=== PATIENT | female | born 1960 | race Two or more races ===

== ENCOUNTER 2025-06-22 23:53 | Emergency (ER) | payer MEDICARE, MEDICAID ==
[~2025-06-22] VITALS: Ht 162.6 cm; Wt 97.2 kg
[~2025-06-22 23:53] MED LIST: ALBU10.7 PO; DILT120T20 PO; FAMO40TA58 PO; LOSA25TA41 PO
--- NOTE | 2025-06-22 23:59 | ELECTROCARDIOGRAPH REPORT ---
[facility] Test Date: 2025-06-22 Test Time: 23:57:17 Pat Name: LISSETTE VOGT Department: EMERGENCY ROOM Room: Gender: F Protocol Officer: MERRICK : 1960 Requested By: KARLA HONEYCUTT Order Number: [id number] Reading MD: Measurements Intervals [place] Rate: 69 P: 61 VA: 153 QRS: 69 QRSD: 97 T: 23 QT: 484 QTc: 519 Interpretive Statements Sinus rhythm RSR' in V1 or V2, right VCD or RVH Prolonged QT interval Please click the below link to view image of tracing.
[2025-06-23 00:08] LABS: MEAN PLATELET VOLUME 7.3 FL (7.4-10.4); RED CELL DISTRIBUTION WIDTH 15.3 % (11.5-14.5)
--- NOTE | 2025-06-23 00:26 | RADIOLOGY REPORT ---
CHEST RADIOGRAPH Indication: CP Technique: Single frontal view of the chest was obtained COMPARISON: DI CHEST,SINGLE VIEW on DOS: 06/02/25, DI CHEST,SINGLE VIEW on DOS: 02/12/25, DI CHEST,TWO VIEWS on DOS: 01/09/25, CHEST,SINGLE VIEW on DOS: 09/19/20 FINDINGS: Lines and Tubes: None Lungs: Clear Pleura: No effusion. No pneumothorax. Cardiomediastinal contours: Unremarkable Bones: Unremarkable IMPRESSION: 1. No acute disease.
[2025-06-23 00:29] LABS: CREATININE 0.88 MG/DL (0.40-0.90); PRO BRAIN NATRIURETIC PEPTIDE 64 PG/ML (0-125); TOTAL CARBON DIOXIDE 24.3 MMOL/L (24-32); eCRCL 54 ML/MIN; eGFR 64 ML/MIN
[2025-06-23] MEDS ORDERED: PRED20TA PO (01:42)
--- NOTE | 2025-06-23 01:43 | Physician Documentation ---
History of Present Illness ~ Chief Complaint: Shortness of Breath Stated Complaint: SOB A ALS Time Seen by MD: 00:06 Mode of Arrival: EMS HPI 65 year old female BIB EMS with asthma exacerbation, provided with breathing treatment en route, improved symptoms on arrival. Medication Reconciliation Allergies: Coded Allergies: aspirin (Verified Allergy, Unknown, 06/02/25) Scheduled Diltiazem HCl (Diltiazem 24Hr ER (LA)), 1 TAB PO DAILY, (Reported) Famotidine (Famotidine), 1 TAB PO DAILY, (Reported) Losartan Potassium (Losartan Potassium), 1 TAB PO DAILY, (Reported) Scheduled PRN Albuterol Sulfate/Budesonide (Airsupra 90-80 Mcg Inhaler), 2 PUFFS PO Q4H PRN for SOB or wheezing, (Reported) Past Medical History Patient History: Diabetes mellitus in mother FH: seizures Brother Sister Hypertension in father Alcohol Use: Sober Drug Use: methamphetamine Lives with: Other Lives In: Assisted Care Review of Systems All Other Systems at this time: Reviewed and Negative Physical Exam Vital Signs: RN Vital Signs have been reviewed: Yes, Heart Rate: 70, Respiratory Rate: 16, BP: 136/106, Pulse Oximetry: 99, Weight: 97.200 Oxygen Flow Rate: 0 Physical Exam HEENT: PERRL, moist oral mucosa, EOMI Pulmonary: No respiratory distress Cardiac: tachycardic, no murmur, rub or gallop GI: nondistended, soft, nontender, no guarding, no rebound MSK: no deformity Skin: w/d/i, no rash Neuro: alert, nonfocal Psych: normal affect Progress Results/Orders Results/Orders Orders - KARLA HONEYCUTT MD Monitor (06/22/25 23:58) Saline Lock (06/22/25 23:58) Oxygen (06/22/25 23:58) Hs Troponin I W Calculations (06/23/25 01:58) Hs Troponin I W Calculations (06/23/25 02:58) Chest,Single View (06/23/25 00:15) Completed Orders - KARLA HONEYCUTT MD Cbc/Diff (06/22/25 23:58) BMP (06/22/25 23:58) PBNP (06/22/25 23:58) Electrocardiogram (06/22/25 23:58) Hs Troponin I W Calculations (06/22/25 23:58) Chest,Single View (06/23/25 00:15) Prednisone Tablet (Prednisone Tablet) (06/23/25 00:55) Medications Received in ER Medications (Trade) Dose Ordered Sig/[place] Route PRN Reason Start Time Stop Time Status Last Admin Dose Admin (predniSONE tablet) 40 mg ONCE ONCE PO 06/23/25 00:55 06/23/25 00:56 DC 06/23/25 01:16 40 MG Vital Signs 06/22/25 06/23/25 06/23/25 06/23/25 23:55 00:00 00:24 01:12 Pulse 66 67 70 Resp 24 22 16 16 B/P (MAP) 161/94 160/73 (102) 136/106 (116) Pulse Ox 100 99 99 O2 Flow Rate 0 Laboratory Tests Test 06/23/25 00:02 White Blood Count 7.1 Red Blood Count 3.64 L Hemoglobin 12.1 Hematocrit 34.3 L Mean Corpuscular Volume 94.2 Mean Corpuscular Hemoglobin 33.3 H Mean Corpuscular Hemoglobin Concent 35.4 Red Cell Distribution Width 15.3 H Platelet Count 332 Mean Platelet Volume 7.3 L Neutrophils (%) (Auto) 59.9 Lymphocytes (%) (Auto) 30.7 Monocytes (%) (Auto) 6.1 Eosinophils (%) (Auto) 3.1 Basophils (%) (Auto) 0.2 Neutrophils # (Auto) 4.3 Lymphocytes # (Auto) 2.2 Monocytes # (Auto) 0.4 Eosinophils # (Auto) 0.2 Basophils # (Auto) 0.0 CBC Comment Sodium Level 129 L Potassium Level 3.4 L Chloride Level 97 L Carbon Dioxide Level 24.3 Anion Gap 8 Blood Urea Nitrogen 11 Creatinine 0.88 Estimated GFR/1.73 m2 64 BUN/Creatinine Ratio 12.5 Glucose Level 133 H Calcium Level 8.9 Troponin I High Sensitivity 9 Pro-B-Type Natriuretic Peptide 64 Albumin 3.8 Chemistry Comments Medical Decision Making Findings 65 year old female with apparent asthma exacerbation. Breathing treatment, steroid, improved, discharged with steroid burst Tx. return precautions. CXR interpreted by me demonstrated normal contours, no PTX, no PNA. Differential Dx:Considerations: Include: anxiety, asthma, bronchitis, COPD, panic attack, pneumonia, pneumonitis, pulmonary embolism, respiratory distress, respiratory failure Departure Disposition: HOME / SELF CARE / HOMELESS Impression: Primary Impression: Acute exacerbation of chronic obstructive airways disease Condition: Stable Discharge Instructions: Asthma, Adult, [id number] Referrals: NO PRIMARY CARE PROVIDER (PCP) Prescriptions Prednisone* (Prednisone*) 20 Mg Tablet 2 TAB PO DAILY, #10 TAB Prov: KARLA HONEYCUTT MD 06/23/25 Education Educated: Patient Educated regarding: diagnosis, treatment, prognosis, need for follow up Signature Scribe Signature: . Attestation: . KARLA HONEYCUTT MD Jun 23, 2025 01:43
[2025-06-23 02:23] VITALS: BP 154/116; PULSE 78; RESP 14; TEMP 98.1; O2SAT 99
== END 2025-06-23 02:26 | disposition home or self-care (01) ==
LOC: ER 23:54
DX: J44.1 Chronic obstructive pulmonary disease with (acute) exacerbation (principal); F15.90 Other stimulant use, unspecified, uncomplicated; F10.90 Alcohol use, unspecified, uncomplicated; Z88.6 Allergy status to analgesic agent; Y90.9 Presence of alcohol in blood, level not specified
CPT/HCPCS: 36415; 71045; 80048; 83880; 84484; 85025; 93005; 99285; J7512

== ENCOUNTER → 2025-07-16 | Emergency (ER) | payer MEDICARE, MEDICAID ==
[~2025-07-16] VITALS: Ht 165.1 cm; Wt 102.0 kg
[~2025-07-16] MED LIST changes: +BUDE10.2 INH; +PRED20TA PO
--- NOTE | 2025-07-16 07:53 | ELECTROCARDIOGRAPH REPORT ---
[facility] Test Date: 2025-07-16 Test Time: 07:48:47 Pat Name: LISSETTE VOGT Department: [facility]- Patient ID: [facility]-[id number] Room: Gender: F Hospitalist: : 1960 Requested By: JENNIFER DAVILA Order Number: [id number] Reading MD: Dr. Edilberto Rodríguez Measurements Intervals [place] Rate: 81 P: 63 AL: 153 QRS: 73 QRSD: 100 T: 8 QT: 436 QTc: 506 Interpretive Statements Sinus rhythm RSR' in V1 or V2, probably normal variant Borderline repolarization abnormality Prolonged QT interval Baseline wander in lead(s) II,III,aVF,V2,V3,V5,V6 Electronically Signed On 07-17-2025 21:40:[address] Edilberto Rodríguez Please click the below link to view image of tracing.
[2025-07-16 08:11] LABS: MEAN PLATELET VOLUME 7.4 FL (7.4-10.4); RED CELL DISTRIBUTION WIDTH 14.6 % (11.5-14.5)
[2025-07-16 08:21] LABS: APTT 28 SECONDS (22-32); INR 1.0 INR
--- NOTE | 2025-07-16 08:21 | RADIOLOGY REPORT ---
EXAM: DI CHEST,SINGLE VIEW Indication: CP Technique: Single frontal view of the chest was obtained Comparison: DI CHEST,SINGLE VIEW on DOS: 06/23/25, DI CHEST,SINGLE VIEW on DOS: 06/02/25, DI CHEST,SINGLE VIEW on DOS: 02/12/25, DI CHEST,TWO VIEWS on DOS: 01/09/25, CHEST,SINGLE VIEW on DOS: 09/19/20 FINDINGS: Lines and Tubes: None Lungs: No focal consolidation. Pleura: No effusion. No pneumothorax. Cardiomediastinal contours: Unremarkable Bones: No acute osseous abnormality. IMPRESSION: No acute cardiopulmonary disease.
[2025-07-16 08:24] LABS: CREATININE 0.81 MG/DL (0.40-0.90); TOTAL CARBON DIOXIDE 24.3 MMOL/L (24-32); eCRCL 61 ML/MIN; eGFR 71 ML/MIN
[2025-07-16 08:31] LABS: PRO BRAIN NATRIURETIC PEPTIDE < 30 PG/ML (0-125)
--- NOTE | 2025-07-16 08:53 | Physician Documentation ---
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 At the facility they noticed her blood pressure was elevated but upon arrival to the emergency room her blood pressure is normal at 145/69. The patient's the chest pain is in the anterior precordial area focused and sharp without nausea vomiting diarrhea diaphoresis. She also states she has some shortness a breath. The patient denies smoking, alcohol drinking as well as drug usage. No other complaints. The patient is ambulatory. Medication Reconciliation Allergies: Coded Allergies: aspirin (Verified Allergy, Unknown, 06/02/25) Scheduled Budesonide/Formoterol Fumarate (Symbicort 160-4.5 Mcg Inhaler), 2 PUFFS INH Q12H Diltiazem HCl (Diltiazem 24Hr ER (LA)), 1 TAB PO DAILY, (Reported) Famotidine (Famotidine), 1 TAB PO DAILY, (Reported) Losartan Potassium (Losartan Potassium), 1 TAB PO DAILY, (Reported) Prednisone* (Prednisone*), 2 TAB PO DAILY Scheduled PRN Albuterol Sulfate/Budesonide (Airsupra 90-80 Mcg Inhaler), 2 PUFFS PO Q4H PRN for SOB or wheezing, (Reported) Past Medical History Patient History: Diabetes mellitus in mother FH: seizures Brother Sister Hypertension in father Alcohol Use: Sober Drug Use: methamphetamine Lives with: Other Lives In: Assisted Care Review of Systems ROS As stated above in the HPI, otherwise all systems are reviewed and negative. Physical Exam Vital Signs: Temperature: 98.1, Source: Oral, Heart Rate: 73, Respiratory Rate: 19, BP: 130/95, Pulse Oximetry: 97, Weight: 102.000 Physical Exam Reviewed vital signs and they are well within normal range. Const: Patient is not in acute cardiopulmonary distress Head: Atraumatic Eyes: Normal Conjunctiva ENT: Normal External Ears, Nose and Mouth. Moist mucous membranes Neck: Full range of motion. No meningismus Resp: Clear to auscultation bilaterally. Normal work of breathing Cardio: Regular rate and rhythm, no murmurs. Skin well perfused, heart rate 84/minute Abd: Soft, non-tender, non-distended. Normal bowel sounds. No rebound or guarding Skin: No petechiae or rashes. Warm and dry Back: No midline or flank tenderness Ext: No cyanosis, or edema Neuro: Awake and alert Psych: Normal Mood and Affect Procedures Additional Procedures Additional Procedure Note ED MD interpretation of EKG done at 07:48 hours shows sinus rhythm at a rate of 81. Normal axis and normal intervals. Mildly elevated QTC of 506. No ischemic changes. Progress Results/Orders Results/Orders Orders - JENNIFER DAVILA MD Chest,Single View (07/16/25 07:40) Monitor (07/16/25 07:40) Saline Lock (07/16/25 07:40) Oxygen (07/16/25 07:40) Completed Orders - JENNIFER DAVILA MD Chest,Single View (07/16/25 07:40) Cbc/Diff (07/16/25 07:40) BMP (07/16/25 07:40) PBNP (07/16/25 07:40) Electrocardiogram (07/16/25 07:40) Hs Troponin I W Calculations (07/16/25 07:40) Hs Troponin I W Calculations (07/16/25 09:40) MG (07/16/25 07:42) Pt Inr (07/16/25 07:42) PTT (07/16/25 07:42) Liver Panel (07/16/25 07:42) D-Dimer (07/16/25 07:48) Vital Signs 07/16/25 07/16/25 07/16/25 07/16/25 07:41 07:56 07:57 09:05 Temp 98.1 98.1 98.1 Pulse 78 73 70 Resp 20 19 14 B/P (MAP) 145/69 130/95 (107) 128/96 (107) Pulse Ox 98 97 98 07/16/25 07/16/25 10:42 10:45 Temp 98.1 98.1 Pulse 67 67 Resp 13 13 B/P (MAP) 133/70 133/77 (95) Pulse Ox 99 99 O2 Flow Rate 0 Laboratory Tests Test 07/16/25 07:53 07/16/25 09:40 White Blood Count 6.8 Red Blood Count 3.86 L Hemoglobin 12.6 Hematocrit 36.9 Mean Corpuscular Volume 95.5 Mean Corpuscular Hemoglobin 32.7 H Mean Corpuscular Hemoglobin Concent 34.3 Red Cell Distribution Width 14.6 H Platelet Count 324 Mean Platelet Volume 7.4 Neutrophils (%) (Auto) 66.1 Lymphocytes (%) (Auto) 23.2 Monocytes (%) (Auto) 7.1 Eosinophils (%) (Auto) 2.8 Basophils (%) (Auto) 0.8 Neutrophils # (Auto) 4.5 Lymphocytes # (Auto) 1.6 Monocytes # (Auto) 0.5 Eosinophils # (Auto) 0.2 Basophils # (Auto) 0.1 CBC Comment Prothrombin Time 10.4 INR International Normalized Ratio 1.0 Activated Partial Thromboplast Time 28 D-Dimer 0.23 D-Dimer Comment Coagulation Comments Sodium Level 132 L Potassium Level 3.9 Chloride Level 98 L Carbon Dioxide Level 24.3 Anion Gap 10 Blood Urea Nitrogen 13 Creatinine 0.81 Estimated GFR/1.73 m2 71 BUN/Creatinine Ratio 16.0 Glucose Level 116 H Calcium Level 9.2 Magnesium Level 2.1 Total Bilirubin 0.8 Direct Bilirubin 0.2 Aspartate Amino Transf (AST/SGOT) 25 Alanine Aminotransferase (ALT/SGPT) 49 Alkaline Phosphatase 108 Troponin I High Sensitivity 6 6 Pro-B-Type Natriuretic Peptide < 30 Total Protein 7.3 Albumin 3.7 Globulin 3.6 Albumin/Globulin Ratio 1.0 L Chemistry Comments Troponin I High Sens Percent Delta 0 Troponin I Hi Sens Absolute Change 0 Medical Decision Making Findings ER Course/Med. Decision Making REVIEW of RECORD(S): Previous medical records here and/or external medical records, such as that provided directly by the patient, by EMS and/or outside medical facilities, if available, were reviewed. COMORBIDITIES prior history of drug abuse, COPD asthma MDM During the physical examination, the findings suggestive of acute life- threatening condition such as JVD, tracheal deviation, acidotic breathing, noisy stridorous breath sounds, pulses paradoxus, muffled heart sounds, unequal breath sounds, abdominal rigidity and rebound tenderness, focal neurological deficits, cool clammy skin, severe hypotension, severe tachycardia or bradycardia are absent. Patient presenting for chest pain and shortness a breath. Vital signs reviewed. Patient is hemodynamically stable and does not meet SIRS criteria. Patient appears nontoxic on exam. She does not have any respiratory distress. Physical examination is unremarkable. CBC showed WBC 6.8 H&H 12.6 and 36.9 and platelets 329. Troponin is six and proBNP less than 30. CMP: no evidence of clinically significant acidosis, alkalosis, renal dysfunction, diabetic ketoacidosis, acute liver disease or electrolyte imbalance D-dimer 0.23. Chest x-ray unremarkable. First troponin is six and Second troponin is six. A DIFFERENTIAL DIAGNOSIS associated with the patients presentation includes: Include: anxiety, asthma, bronchitis, COPD, panic attack, pneumonia, pneumonitis, pulmonary embolism, respiratory distress, respiratory failure, coronary artery disease, coronary spasm, NSTEMI NSTEMI TREATMENT/DISPOSITION: The patient's presentation is most consistent with nonspecific chest pain Prior to discharge I independently reviewed the patients past medical history, clinical risk factors, comorbidities, and social determinants of health and diagnostic studies. The patient appears to be a safe discharge home with close outpatient PCP follow-up I had extensive discussion with patient regarding management, disposition and follow up. Potential symptom etiology was discussed, and shared decision making occurred. They will return immediately if symptoms worsen, do not improve, or they have any further concerns. Prior to discharge all questions were addressed. The patient is aware that the purpose of this visit was to screen for an acute medical emergency requiring emergent stabilization. Chronic and occult conditions, including malignancies, have not been ruled out. If patient is unable to arrange follow-up as stated in the discharge instructions and further discussed with the patient directly, or their symptoms worsen/become more concerning, they are to return to the ER for reassessment immediately. Prior to leaving the department, the patient has a plan for discharge, has decision making capacity, and acknowledges an un derstanding of the verbal and written discharge instructions. SOCIAL DETERMINANTS: Patient demonstrates no obvious challenges to following up as an outpatient although did consider whether patient had any barriers to access care including homelessness, Food insecurity, Mental health, Substance abuse, Disabilities, Limited access to medical care, Difficulty finding transport, Insurance issues, Refusal of care or testing due to cost concerns. MEDICAL SCREENING: I have discussed with the patient the non-definitive nature of the emergency screening exam, diagnosis and the possibility of a variety of conditions which may present in atypically benign fashion and stressed the importance of close follow-up for definitive diagnosis and treatment. We discussed signs and symptoms that should be watched for which might indicate a more serious or new condition that would benefit from emergency reevaluation and the patient has verbalized understanding to this and my other detailed discharge instructions and promises compliance. I have referred him back to his primary physician of course for a more detailed evaluation and more definitive diagnose s. DISCLAIMER: Inadvertent spelling and grammatical errors are likely due to EMR/dictation software use and do not reflect on the overall quality of patient care. Note that the electronic time recorded on this note does not necessarily reflect the actual time of the patient encounter. Heart Score: 3 Departure Disposition: HOME / SELF CARE / HOMELESS Impression: Primary Impression: Nonspecific chest pain Condition: Stable Discharge Instructions: Nonspecific Chest Pain, Adult Additional Instructions: Thank you for coming to our Emergency Department today. Please ask your nurse or provider if you have questions about your care today and do not leave until all your questions have been answered. Please use any m edications given as directed and follow-up with your doctor (or the doctor you were referred to) in the next 1-3 days. Your primary care doctor can help to coordinate outpatient specialty care and provide authorization for specialty referral as needed. If you do not have a primary care doctor you may follow up at a [facility]. You may also use motrin and tylenol as needed for fever and/or pain unless instructed otherwise by your provider or nurse. Indications for more urgent follow-up have been discussed, but you may return to the Emergency Department at ANY time for any worrisome or worsening symptoms. County Facilities: County Facilities: [facility]: [facility] [place] Address:[address] [place] [address] [facility]: [place] Address:[address] [place] [id number] [facility]: Telemedicine Address:[address] [place] [address] [facility] Address:[address] [place], [place] [id number] Registration Billing Pharmacy Referrals [facility] Address:[address] [place] [address], [place] [address] Departure Forms: Prescriptions Transmitted Referrals: NO PRIMARY CARE PROVIDER (PCP) Prescriptions Budesonide/Formoterol Fumarate (Symbicort 160-4.5 Mcg Inhaler) 160 Mcg-4.5 Mcg/Actuation Hfa.aer.ad 2 PUFFS INH Q12H for 30 Days, #10.2 GM 0 Refills Prov: JENNIFER DAVILA MD 07/16/25 Education Educated: Patient, Family Educated regarding: diagnosis, treatment, need for follow up Signature Scribe Signature: No scribe Attestation: My dictation JENNIFER DAVILA MD Jul 16, 2025 08:53
[2025-07-16 10:45] VITALS: BP 133/77; PULSE 67; RESP 13; TEMP 98.1; O2SAT 99
== END | disposition home or self-care (01) ==
LOC: ER 07:33
DX: R07.9 Chest pain, unspecified (principal); F15.90 Other stimulant use, unspecified, uncomplicated; I10 Essential (primary) hypertension; Z88.6 Allergy status to analgesic agent; Z79.899 Other long term (current) drug therapy
CPT/HCPCS: 36415; 71045; 80048; 80076; 83735; 83880; 84484; 85025; 85379; 85610; 85730; 93005; 99285

== ENCOUNTER 2025-08-21 10:53 | Inpatient (IN) | payer MEDICARE, MEDICAID ==
[~2025-08-21] VITALS: Ht 162.6 cm; Wt 101.0 kg
[~2025-08-21 10:53] MED LIST changes: -PRED20TA PO
--- NOTE | 2025-08-21 11:01 | Physician Documentation ---
History of Present Illness ~ Stated Complaint: CP Time Seen by MD: 11:42 HPI This is a 65-year-old female brought from a recovery program by EMS due to complaints of substernal chest pain and shortness of breath. She was also noted to have a recent near syncopal episode. At the time of the arrival, she was rating her pain five or 6/10, and was given one nitro. She notes that the pain is now subsiding, but she does not endorse significant shortness of breath. History COPD, currently on prednisone. No recent fevers or chills. Hx meth use but clean over 5 yrs. Medication Reconciliation Allergies: Coded Allergies: aspirin (Verified Allergy, Unknown, 06/02/25) Scheduled Budesonide/Formoterol Fumarate (Symbicort 160-4.5 Mcg Inhaler), 2 PUFFS INH Q12H Diltiazem HCl (Diltiazem 24Hr ER (LA)), 1 TAB PO DAILY, (Reported) Famotidine (Famotidine), 1 TAB PO DAILY, (Reported) Losartan Potassium (Losartan Potassium), 1 TAB PO DAILY, (Reported) Scheduled PRN Albuterol Sulfate/Budesonide (Airsupra 90-80 Mcg Inhaler), 2 PUFFS PO Q4H PRN for SOB or wheezing, (Reported) Past Medical History Patient History: Diabetes mellitus in mother FH: seizures Brother Sister Hypertension in father Alcohol Use: Sober Drug Use: methamphetamine Lives with: Other Lives In: Assisted Care Review of Systems ROS As stated above in the HPI, otherwise all systems are reviewed and negative. Physical Exam Physical Exam General: Alert, mild distress and appears anxiouys. HEENT: PERRL, EOMI, no injection, moist mucous membranes. Neck: Full range of motion. Respiratory: Lungs clear,mild distress with tachypnea. Chest: No accessory muscle use. Cardiovascular: Regular rate and rhythm, no murmurs. Gastrointestinal: Soft, nontender, nondistended. Bowels sounds present. Extremities: Normal range of motion, no deformity. Neurologic: Oriented x4. Psychiatric: Normal mood and affect. Skin: Normal color, warm and dry. 1+ edema BLE. Progress Progress Note 1300: On re-evaluation, patient denies any chest pain. Results/Orders Results/Orders Orders - ELIZABETH STOVALL FISH ROE PROCESSOR Chest,Single View (08/21/25 10:57) Saline Lock (08/21/25 10:57) Monitor (08/21/25 10:57) Oxygen (08/21/25 10:57) Svn Treatment (08/21/25 11:06) Covid19 Binax Poc Result Entry (08/21/25 11:43) Cult Urine + [address] (08/21/25 12:36) Page Hospitalist (08/21/25 ) Completed Orders - ELIZABETH STOVALL FISH ROE PROCESSOR Cbc/Diff (08/21/25 10:57) MG (08/21/25 10:57) Electrocardiogram (08/21/25 10:57) PBNP (08/21/25 10:57) Chest,Single View (08/21/25 10:57) BMP (08/21/25 10:57) Hs Troponin I W Calculations (08/21/25 10:57) Hs Troponin I W Calculations (08/21/25 12:57) Ipratropium/Albuterol Nebule (Ipratrop/A (08/21/25 11:10) Influenza Type A&B Rapid Test (08/21/25 11:56) Ua W/Microscopic, Cult If Ind (08/21/25 11:56) Ceftriaxone/A8s-Wzxyzaxy 1gm (Rocephin 1 (08/21/25 12:55) Medications Received in ER Medications (Trade) Dose Ordered Sig/[place] Route PRN Reason Start Time Stop Time Status Last Admin Dose Admin (ipratrop/ albuterol 0.5-3(2.5) MG/3ml nebule) 3 ml ONCE ONCE NEB 08/21/25 11:10 08/21/25 11:11 DC 08/21/25 11:31 3 ML Vital Signs 08/21/25 08/21/25 08/21/25 08/21/25 11:13 11:29 11:36 11:36 Temp 98.1 Pulse 70 67 70 Resp 21 18 B/P (MAP) 119/61 Pulse Ox 99 100 100 99 O2 Delivery Room Air* Room Air* Room Air* O2 Flow Rate 0 0 0 0 FiO2 21 N/A N/A 08/21/25 13:36 Pulse 64 Resp 16 B/P (MAP) 129/79 (96) Pulse Ox 98 O2 Flow Rate 0 Laboratory Tests Test 08/21/25 11:10 08/21/25 11:56 08/21/25 12:45 White Blood Count 7.0 Red Blood Count 3.58 L Hemoglobin 11.9 L Hematocrit 34.0 L Mean Corpuscular Volume 94.8 Mean Corpuscular Hemoglobin 33.1 H Mean Corpuscular Hemoglobin Concent 35.0 Red Cell Distribution Width 14.4 Platelet Count 328 Mean Platelet Volume 7.1 L Neutrophils (%) (Auto) 63.6 Lymphocytes (%) (Auto) 27.4 Monocytes (%) (Auto) 6.2 Eosinophils (%) (Auto) 2.4 Basophils (%) (Auto) 0.4 Neutrophils # (Auto) 4.5 Lymphocytes # (Auto) 1.9 Monocytes # (Auto) 0.4 Eosinophils # (Auto) 0.2 Basophils # (Auto) 0.0 CBC Comment Sodium Level 127 L Potassium Level 3.4 L Chloride Level 93 L Carbon Dioxide Level 22.9 L Anion Gap 11 Blood Urea Nitrogen 13 Creatinine 0.84 Estimated GFR/1.73 m2 68 BUN/Creatinine Ratio 15.5 Glucose Level 153 H Calcium Level 8.5 Magnesium Level 1.8 Troponin I High Sensitivity 5 6 Pro-B-Type Natriuretic Peptide 62 Albumin 3.9 Chemistry Comments Urine Specimen Description Non-specified Urine Color Yellow Urine Clarity Clear Urine pH 7.0 Urine Specific [place] 1.010 Urine Protein Negative Urine Glucose (UA) Negative Urine Ketones Negative Urine Occult Blood Negative Urine Nitrite Negative Urine Bilirubin Negative Urine Urobilinogen 0.2 Urine Leukocyte Esterase Small H Urine RBC 0-2 Urine WBC 20-30 H Urine Squamous Epithelial Cells Few Urine Transitional Epithelial Cells Few Urine Bacteria 2+ Urine Culture Indicated Indicated Volume Urine Centrifuged 10 ml Urine Comment Influenza Type A Antigen Negative Influenza Type B Antigen Negative SARS-CoV-2 Antigen (Rapid) Negative Troponin I High Sens Percent Delta 20 Troponin I Hi Sens Absolute Change 1 Microbiology Date/Time Source Procedure Growth Status 08/21/25 12:36 Urine Nonspecified Urine Culture - Preliminary Culture received. Resulted EKG/XRAY/CT/US/VASC/MRI EKG : Additional Comment Eleven 10: EKG interpreted to show regular sinus rhythm rate of 68. QTC [address] segment elevation. Chest X-Ray : Additional Comments [facility] [address] [facility], [facility] [id number] DIAGNOSTIC RADIOLOGY Patient: LISSETTE VOGT Medical Record: [id number] [facility] : 1960, Age: 65 Sex: Female Location: ER Patient Status: [facility] ER Service Date/Time: 08/21/25/ 1056 Ordering Physician: ELIZABETH STOVALL NP Exam: CHEST,SINGLE VIEW CHEST RADIOGRAPH Indication: CP Technique: Single frontal view of the chest was obtained COMPARISON: DI CHEST,SINGLE VIEW on DOS: 07/16/25, DI CHEST,SINGLE VIEW on DOS: 06/23/25, DI CHEST,SINGLE VIEW on DOS: 06/02/25, DI CHEST,SINGLE VIEW on DOS: 02/12/25, DI CHEST,TWO VIEWS on DOS: 01/09/25 FINDINGS: Lines and Tubes: None Lungs: Congestion Pleura: No effusion. No pneumothorax. Cardiomediastinal contours: Unremarkable Bones: Unremarkable IMPRESSION: Increased interstital prominence. This may represent pulmonary vascular congestion and/or viral pneumonia. Clinical correlation advised. Electronically Signed by:KADEN RILEY MD Date & Time: 08/21/25 1130 Dictated by: KADEN RILEY MD Dictation date and time: 08/21/25 1121 Primary Care Provider: NO PRIMARY CARE PROVIDER cc: ELIZABETH STOVALL FISH ROE PROCESSOR ~ Medical Decision Making Additional information obtaine: other Findings Report received at bedside from laundry bag punch operator. Heart Score: 4 Differential Dx:Considerations: Include: anxiety, asthma, bronchitis, cardiogenic shock, CHF, COPD, dysrhythmia, hypertension, accelerated, hypertension, essential, hypertension, malignant, hyperventilation, hyponatremia, myocardial infarction, panic attack, pneumonia, pneumonitis, pneumothorax, PSVT, pulmonary embolism, respiratory distress, respiratory failure, sinusitis, upper resp. infection Additional Infomation Most Likely Diagnoses 1. Symptomatic hyponatremia (euvolemic or hypovolemic): A sodium of 127 mmol/L can cause dyspnea, fatigue, and other nonspecific symptoms, especially in older adults. Hyponatremia may be related to infection (UTI-induced SIADH), medications, or underlying endocrine or renal disorders. Symptoms are more likely as sodium drops below 130 mmol/L, and severity depends on acuity and comorbidities.[1] 2. Urinary tract infection (UTI): UTI is confirmed by laboratory evidence and is a common cause of acute illness in older women. UTI can precipitate SIADH and hyponatremia, and may also cause malaise, dyspnea, or delirium, even without fever or classic urinary symptoms.[2] 3. Anxiety or psychogenic dyspnea: Dyspnea in the absence of hypoxia, normal chest X-ray, and normal cardiac markers may be related to anxiety, which is common in older adults and can be exacerbated by acute illness.[3] 4. Early or atypical pneumonia: While chest X-ray is normal, early pneumonia or atypical pathogens (e.g., Legionella) can present with dyspnea and hyponatremia before radiographic changes appear. Legionella pneumonia is classically associated with hyponatremia and may present with minimal respiratory findings.[4] Most Important Not to Miss Diagnoses 1. Pulmonary embolism (PE): PE can present with isolated dyspnea and normal chest X-ray and cardiac markers. Consider D-dimer and/or CT pulmonary angiography if clinical suspicion is high. 2. Sepsis or early septic shock from UTI: UTI in older adults can progress rapidly to sepsis, sometimes with minimal localizing symptoms. Monitor for hypotension, tachycardia, altered mental status, and worsening renal function.[2] 3. Acute heart failure: Although BNP and troponin are normal and CXR is clear, heart failure can present atypically in older adults. Serial assessment and echocardiography may be warranted if symptoms persist or worsen.[5] Departure Time of Disposition: 14:00 Disposition: 09 ADMITTED INPATIENT Admitted to Inpatient Unit: yes, to hospitalist Impression: Primary Impression: Chest pain Additional Impressions: Hyponatremia Near syncope Urinary tract infection Referrals: NO PRIMARY CARE PROVIDER (PCP) Signature Scribe Signature: x Attestation: The note accurately reflects work and decisions made by me.Elizabeth Booker NP 08/21/25 11:00 ELIZABETH STOVALL NP Aug 21, 2025 11:01
--- NOTE | 2025-08-21 11:13 | ELECTROCARDIOGRAPH REPORT ---
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 Edilberto Rodríguez Measurements Intervals [place] Rate: 68 P: 37 AR: 142 QRS: 54 QRSD: 101 T: -39 QT: 415 QTc: 442 Interpretive Statements Sinus rhythm RSR' in V1 or V2, probably normal variant Borderline repolarization abnormality Baseline wander in lead(s) II,aVF Electronically Signed On 08-21-2025 18:50:[address] Edilberto Rodríguez Please click the below link to view image of tracing.
[2025-08-21 11:17] LABS: MEAN PLATELET VOLUME 7.1 FL (7.4-10.4); RED CELL DISTRIBUTION WIDTH 14.4 % (11.5-14.5)
[2025-08-21] MEDS: ipratropium/albuterol 3ml nebule NEB ONE (11:31)
--- NOTE | 2025-08-21 11:33 | RADIOLOGY REPORT ---
CHEST RADIOGRAPH Indication: CP Technique: Single frontal view of the chest was obtained COMPARISON: DI CHEST,SINGLE VIEW on DOS: 07/16/25, DI CHEST,SINGLE VIEW on DOS: 06/23/25, DI CHEST,SINGLE VIEW on DOS: 06/02/25, DI CHEST,SINGLE VIEW on DOS: 02/12/25, DI CHEST,TWO VIEWS on DOS: 01/09/25 FINDINGS: Lines and Tubes: None Lungs: Congestion Pleura: No effusion. No pneumothorax. Cardiomediastinal contours: Unremarkable Bones: Unremarkable IMPRESSION: Increased interstital prominence. This may represent pulmonary vascular congestion and/or viral pneumonia. Clinical correlation advised.
[2025-08-21 11:36] VITALS: PULSE 67; PULSE 70; RESP 18; O2SAT 100; O2SAT 99
[2025-08-21 11:40] LABS: CREATININE 0.84 MG/DL (0.40-0.90); PRO BRAIN NATRIURETIC PEPTIDE 62 PG/ML (0-125); TOTAL CARBON DIOXIDE 22.9 MMOL/L (24-32); eCRCL 57 ML/MIN; eGFR 68 ML/MIN
[2025-08-21 12:27] LABS: LEUKOCYTE ESTERASE ,URINE SMALL (Neg); NITRITES, URINE NEGATIVE (Neg); OCCULT BLOOD,URINE NEGATIVE (Neg)
[2025-08-21 12:34] LABS: UA COLLECTION TYPE NON-SPECIFIED
[2025-08-21 12:35] LABS: SQUAMOUS EPITHELIAL CELL,UR FEW /LPF (FEW)
[2025-08-21 12:46] LABS: INFLUENZA TYPE A ANTIGEN RAPID NEGATIVE (Negative); INFLUENZA TYPE B ANTIGEN RAPID NEGATIVE (Negative)
[2025-08-21] MEDS ORDERED: potassium Cl 20 mEq SR tablet PO PRN (13:50)
[2025-08-21] MEDS ORDERED: magnesium hydroxide 30ml (MOM) UD suspension PO PRN (13:50)
[2025-08-21] MEDS ORDERED: morphine 4 MG/ML inj SYRINge IV PRN (13:50)
[2025-08-21] MEDS ORDERED: magnesium sulf-water 2g/50mL 50 ML IV PRN (13:50)
[2025-08-21] MEDS ORDERED: magnesium sulf-water 4G/100mL 100 ML IV PRN (13:50)
[2025-08-21] MEDS ORDERED: bisacodyl 10mg suppository rectal RC PRN (13:50)
[2025-08-21] MEDS ORDERED: ondansetron/PF 4mg/2ml inj IV PRN (13:50)
[2025-08-21] MEDS ORDERED: potassium Cl 40MEQ/1/2NS 520ml 520 ML IV PRN (13:50)
[2025-08-21] MEDS ORDERED: magnesium Cl slow-release 64mg tablet PO PRN (13:50)
[2025-08-21] MEDS: normal saline 1000ml 1,000 ML IV SCH (15:14)
[2025-08-21] MEDS: CefTRIAXone/D5W-Rocephin 1gm 50 ML IV ONE (15:14)
[2025-08-21] MEDS ORDERED: metoprolol tartrate 1mg/ml inj IV PRN (16:40)
[2025-08-21] MEDS ORDERED: aminophylline 250mg/10ml inj. IV PRN (16:40)
[2025-08-21] MEDS: HYDROcodone/acetaminophen 5mg/325mg tablet PO PRN (17:33)
--- NOTE | 2025-08-21 17:39 | CARDIOLOGY REPORT ---
APPROVED REPORT EXAM: Limited 2D, Doppler, and color-flow Echocardiogram. Patient Location: ED12 Blood Pressure: 129/79 mmHg Heart Rate: 66 bpm Rhythm: NSR Indications Chest Pain CHF SOB COPD Hx Meth No organ teacher Previous echo 06/03/25 [facility] 65-70% ; tr MR TR Aortic Valve AoV Peak [place]. 148.3 cm/s AO Peak GR. 8.8 mmHg Tricuspid Valve TR P. Velocity 284 cm/s RAP ESTIMATE 10 mmHg TR Peak Gr. 32 mmHg RVSP 42 mmHg LEFT VENTRICLE LV appears normal in size and thickness. Overall systolic function appears normal. LVEF is 60%. RIGHT VENTRICLE RV appears mildly dilated with normal contractility. RVSP is estimated at 42 mmHG. AORTIC VALVE Trileaflet AV appears sclerotic without stenosis. No insufficiency. MITRAL VALVE MV is thickened with mild annular thickening. Trace mitral regurgitation. TRICUSPID VALVE The tricuspid valve is normal in structure. Mild to moderate tricuspid regurgitation. PERICARDIUM There is no pericardial effusion. Other Information Study Quality: Adequate Conclusion LV appears normal in size and thickness. Overall systolic function appears normal. LVEF is 60%. RV appears mildly dilated with normal contractility. RVSP is estimated at 42 mmHG. Trileaflet AV appears sclerotic without stenosis. No insufficiency. MV is thickened with mild annular thickening. Trace mitral regurgitation. The tricuspid valve is normal in structure. Mild to moderate tricuspid regurgitation. There is no pericardial effusion.
[2025-08-21] MEDS ORDERED: LOSA50TA64 PO (19:17)
[2025-08-21 19:50] VITALS: BP 157/69; PULSE 65; RESP 15; TEMP 97.9; O2SAT 99
[2025-08-21] MEDS: potassium Cl 20 mEq SR tablet PO PRN (20:12)
[2025-08-21] MEDS: K and/or MAG REPLACEMENT MC SCH (20:13)
[2025-08-21] MEDS: heparin, porcine 5000 units/ml vial SQ SCH (20:13)
--- NOTE | 2025-08-21 20:34 | HISTORY AND PHYSICAL ---
History & Physical Providers to CC ~ History of Present Illness Reason for Admit\Complaint: Chest pain rule out ACS, dizziness History of Present Illness This is a 65-year-old female brought from a recovery program by EMS due to complaints of substernal chest pain and shortness of breath. Chest pain present over midline nonradiating. Denied use of any alcohol or any tobacco. Blow Molding Machine Operator gave her nitro which helped for chest pain She was also noted to have a recent near syncopal episode. She was feeling very dizzy and tired. At the time of the arrival, she was rating her pain five or 6/10, and was given one nitro. She notes that the pain is now subsiding, but she does not endorse significant shortness of breath. History COPD, currently on prednisone. No recent fevers or chills. Hx meth use but clean over 5 yrs. Patient medication list reviewed and as per patient hydrochlorothiazide is the new medication but rest of the medications are chronic. Further workup done in ER sodium 127 signs of possible UTI present. Hospitalist services contacted for admission and further management Allergies: Coded Allergies: aspirin (Verified Allergy, Unknown, 06/02/25) Home Medications Home Medications Active Symbicort 160-4.5 Mcg Inhaler (Budesonide/Formoterol Fumarate) 160 Mcg-4.5 Mcg/Actuation Hfa.aer.ad 2 Puffs INH Q12H 30 Days Reported Losartan Potassium 50 Mg Tablet 1 Tab PO DAILY Airsupra 90-80 Mcg Inhaler (Albuterol Sulfate/Budesonide) 90 Mcg-80 Mcg/Actuation Hfa.aer.ad 2 Puffs PO Q4H PRN Diltiazem 24Hr ER (LA) (Diltiazem HCl) 120 Mg Tab.er.24h 1 Tab PO DAILY Famotidine 40 Mg Tablet 1 Tab PO DAILY Past Medical History Past Medical History Hypertension Substance abuse Past Surgical History Surgical History Comment Hysterectomy, 1993 Possible cholecystectomy Family History Family History: Diabetes mellitus in mother FH: seizures Brother Sister Hypertension in father Past Social History Social History Comment Smoking: Non-Smoker Alcohol Use: Sober (Sober for 1 year) Drug Use: Methamphetamine (Sober for 3 years) Lives with: Other Lives In: Assisted Care (Sober living facility) ROS ROS Review of system as mentioned above in HPI rest of the review of system unremarkable Exam Vitals: Vital Signs Date Time Temp Pulse Resp B/P (MAP) Pulse Ox O2 Delivery O2 Flow Rate FiO2 08/21/25 19:14 67 14 142/99 (113) 98 0 08/21/25 11:36 Room Air* N/A 08/21/25 11:29 98.1 General: General-patient not in any acute distress, alert awake oriented, chronically ill-appearing HEENT-atraumatic normocephalic, neck supple without elevated JVD, no thyromegaly or carotid bruit. No lymphadenopathy bilaterally. Eyes-no icterus or pallor seen in eyes Chest-clear to auscultation bilaterally, breathing nonlabored no tachypnea, no wheezing, no crepitation, no crackles. Heart-S1-S2 normal, regular heart rate no murmur Abdomen bowel sounds positive on auscultation, soft nondistended nontender no guarding, no rigidity Skin no active skin rash Neurology-grossly intact, nonfocal alert awake oriented, no focal neurological deficit Extremity- no pedal edema able to move all 4 extremities Psychiatry - patient is not confused or agitated cooperated during physical examination Diagnostic Data Last Recorded Lab Results: 08/21/25 1110 08/21/25 1110 Additional Plan Patient is 65-year-old female with a diagnosis of Near Syncope, Hypertension, Hypotonic hyponatremia, Mild hypochromic anemia, History of substance abuse, Depression is admitted for chest pain rule out acute coronary syndrome, hyponatremia, possible UTI and near syncope today . We will hold hydrochlorothiazide and patient is started on IV fluids. For hyponatremia started on IV fluids we will monitor patient's labs and vitals closely. Patient is started on IV antibiotic therapy for possible UTI and we will follow the urine culture results. For chest pain echocardiogram and Lexiscan ordered we will follow the results. We will continue to monitor patient's labs and vitals closely . Needs physical therapy evaluation before discharge . Code status discussed with the patient patient wishes full code Time spent in discussing code status 16 minutes. We will do home medication reconciliation once updated in electronic by nursing staff or pharmacist. Further management depending on response to treatment . I will continue to follow patient in a.m. Date of Service: Aug 21, 2025 Billing Provider: IRA DURBIN MD Common Visit Codes: 48437-OGIFZZL INP/OBS CARE (HIGH) Secondary Visit Codes: 92084-[id number] CARE PLAN 30 MINUTES IRA DURBIN MD Aug 21, 2025 20:34
[2025-08-21 22:00] VITALS: BP_SYST 151; BP_SYST 155; BP_SYST 158; BP_DIAS 80; BP_DIAS 82; BP_DIAS 83; PULSE 63; PULSE 64; PULSE 67; RESP 14; TEMP 97.9; O2SAT 98
[2025-08-22] VITALS (16 sets, daily range): BP systolic 114–154; BP diastolic 46–79; PULSE 59–87; RESP 14–18; TEMP 97.4–98.6; O2SAT 95–99
[2025-08-22 06:21] LABS: MEAN PLATELET VOLUME 7.1 FL (7.4-10.4); RED CELL DISTRIBUTION WIDTH 14.5 % (11.5-14.5)
[2025-08-22 06:40] LABS: CREATININE 0.75 MG/DL (0.40-0.90); TOTAL CARBON DIOXIDE 24.2 MMOL/L (24-32); eCRCL 64 ML/MIN; eGFR 77 ML/MIN
[2025-08-22] MEDS ORDERED: ALBUTEROL SULFATE PO PRN (08:40)
[2025-08-22] MEDS ORDERED: BUDESONIDE PO PRN (08:40)
[2025-08-22] MEDS: regadenoson 0.4mg/5ml syringe IV PRN (09:18)
[2025-08-22] MEDS: budesonide 0.5mg/2ml UD nebule IH SCH (10:13)
[2025-08-22] MEDS: albuterol 2.5 MG/3 ML nebule NEB SCH (10:13)
--- NOTE | 2025-08-22 10:48 | RADIOLOGY REPORT ---
HISTORY: chest pain r/o ACS TECHNIQUE: At peak stress, 32.6 mCi of sestamibi was administered intravenously. Soon thereafter, gated SPECT imaging of the heart was performed with the patient in the supine position. At rest, 8.6 mCi of sestamibi was administered intravenously. Soon thereafter, gated SPECT imaging of the heart was performed with the patient in the supine position. FINDINGS: The left ventricular myocardium demonstrates uniform radiotracer distribution, without perfusion defect. The left ventricular cavity is normal in size. Calculated LVEF is 64 %. No segmental wall motion abnormality. IMPRESSION: NORMAL MYOCARDIAL PERFUSION EXAM. LVEF 64 %.
[2025-08-22] MEDS: CefTRIAXone 2gm/D5W 50ml BAG 50 ML IV SCH (10:52)
[2025-08-22] MEDS ORDERED: non-formulary drug (Budesonide/Formoterol Fumarate (Symbicort 160-4.5 Mcg Inhaler) 2 PUFFS INH SCH (20:00)
--- NOTE | 2025-08-22 20:36 | PROGRESS NOTE ---
Daily Progress Note Providers to CC ~ Antibiotic Timeout Antibiotic Ordered?: No Subjective Patient is seen in her room looks comfortable no chest pain. Sodium level still low Objective Vital Signs Date Time Temp Pulse Resp B/P (MAP) Pulse Ox O2 Delivery O2 Flow Rate FiO2 08/22/25 20:07 72 16 Room Air 0.0 21 08/22/25 19:59 96 08/22/25 18:00 97.7 127/67 (87) Result Diagram: 08/22/25 0557 08/22/25 0557 General-patient not in any acute distress, alert awake oriented, chronically ill-appearing HEENT-atraumatic normocephalic, neck supple without elevated JVD, no thyromegaly or carotid bruit. No lymphadenopathy bilaterally. Eyes-no icterus or pallor seen in eyes Chest-clear to auscultation bilaterally, breathing nonlabored no tachypnea, no wheezing, no crepitation, no crackles. Heart-S1-S2 normal, regular heart rate no murmur Abdomen bowel sounds positive on auscultation, soft nondistended nontender no guarding, no rigidity Skin no active skin rash Neurology-grossly intact, nonfocal alert awake oriented, no focal neurological deficit Extremity- no pedal edema able to move all 4 extremities Psychiatry - patient is not confused or agitated cooperated during physical examination Problem\Assessment\Plan Patient is 65-year-old female with a diagnosis of Near Syncope, Hypertension, Hypotonic hyponatremia, Mild hypochromic anemia, History of substance abuse, Depression is admitted for chest pain rule out acute coronary syndrome, hyponatremia, possible UTI and near syncope today . # hyponatremia- We will hold hydrochlorothiazide and patient is started on IV fluids. For hyponatremia started on IV fluids we will monitor patient's labs and vitals closely. # Patient is started on IV antibiotic therapy for possible UTI and we will follow the urine culture results. # For chest pain rule out ACS- echocardiogram and Lexiscan ordered and results reviewed.NM VIVIANA SCANNORMAL MYOCARDIAL PERFUSION EXAM. ECHOCARDIOGRAM Overall systolic function appears normal. LVEF is 60%.RVSP is estimated at 42 mmHG. # [id number] vitals normal . Patient needs physical therapy evaluation We will continue to monitor patient's labs and vitals closely . Needs physical therapy evaluation before discharge . Code status discussed with the patient patient wishes full code. home medication reconciliation once updated in electronic records. Further management depending on response to treatment . I will continue to follow patient in a.m. Date of Service: Aug 22, 2025 Billing Provider: IRA DURBIN MD Common Visit Codes: [id number] INP/OBS CARE(HIGH) IRA DURBIN MD Aug 22, 2025 20:36
[2025-08-23 03:41] VITALS: PULSE 71; RESP 16; O2SAT 97
[2025-08-23 03:46] VITALS: PULSE 70; RESP 16
[2025-08-23 05:00] VITALS: BP 138/71; PULSE 67; RESP 14; TEMP 97.2; O2SAT 99
[2025-08-23 06:48] LABS: MEAN PLATELET VOLUME 7.5 FL (7.4-10.4); RED CELL DISTRIBUTION WIDTH 14.6 % (11.5-14.5)
[2025-08-23 07:34] LABS: CREATININE 0.89 MG/DL (0.40-0.90); TOTAL CARBON DIOXIDE 24.4 MMOL/L (24-32); eCRCL 54 ML/MIN; eGFR 63 ML/MIN
[2025-08-23 08:30] VITALS: PULSE 72; RESP 16; O2SAT 96
[2025-08-23 08:38] VITALS: PULSE 72; RESP 17
[2025-08-23 09:11] LABS: HEP B CORE AB, IGM Negative (Negative)
[2025-08-23] MEDS: diltiazem CD 120mg capsule (once-daily) PO SCH (09:47)
[2025-08-23] MEDS ORDERED: CIPR-259 PO (09:47)
[2025-08-23] MEDS ORDERED: SODI1TAB2 PO (09:47)
[2025-08-23] MEDS ORDERED: LOSA50TA64 PO (09:47)
[2025-08-23 10:00] VITALS: BP 115/66; PULSE 79; RESP 17; TEMP 98.2; O2SAT 98
[2025-08-23 11:24] LABS: HBSAG SCREEN Negative (Negative); HEP B CORE AB, TOT Negative (Negative)
--- NOTE | 2025-08-23 17:46 | DISCHARGE SUMMARY ---
Discharge Summary Providers to CC ~ Discharge Summary Admission Diagnosis: chest Pain rule out ACS, near-syncope, hyponatremia, UTI Hospital Course DATE OF ADMISSION: August 21, 2025 DATE OF DISCHARGE: August 23, 2025 CBC testing done on August 23, 2025 WBC 6.0 hemoglobin 11.5 hematocrit 32.8 platelet count 340. Serum chemistry done on August 23, 2000 25 sodium 133 potassium 4.2 creatinine 0.89 GFR 63 normal liver enzymes. Unremarkable cardiac markers BNP 62. Urine culture showed E coli NM VIVIANA SCANIMPRESSION: NORMAL MYOCARDIAL PERFUSION EXAM. LVEF 64 %. ECHOCARDIOGRAM-Conclusion LV appears normal in size and thickness. Overall systolic function appears normal. LVEF is 60%. RV appears mildly dilated with normal contractility. RVSP is estimated at 42 mm HG. Trileaflet AV appears sclerotic without stenosis. No insufficiency. MV is thickened with mild annular thickening. Trace mitral regurgitation. The tricuspid valve is normal in structure. Mild to moderate tricuspid regurgitation. There is no pericardial effusion. Discharge Diagnosis\\Comment: Chest pain ruled out ACS, Acute UTI, Near Syncope, Hypertension, Hypotonic hyponatremia, Mild hypochromic anemia, History of substance abuse, Depression Operations\\Procedures: None Consultants: None Complications: None Condition on DC: Stable New Medications: Ciprofloxacin HCl (Cipro) 500 Mg Tablet 1 TAB PO Q12H for 5 Days, #10 TAB Sodium Chloride (SODIUM CHLORIDE tablet) 1,000 Mg Tablet 1 GM PO BID for 10 Days, #20 TAB Changed Medications: Losartan Potassium (Losartan Potassium) 50 Mg Tablet 0.5 TAB PO DAILY for 30 Days, #15 TAB (Changed from: 1 TAB) Continued Medications: Albuterol Sulfate/Budesonide (Airsupra 90-80 Mcg Inhaler) 90 Mcg-80 Mcg/Actuation Hfa.aer.ad 2 PUFFS PO Q4H PRN for SOB or wheezing Budesonide/Formoterol Fumarate (Symbicort 160-4.5 Mcg Inhaler) 160 Mcg-4.5 Mcg/Actuation Hfa.aer.ad 2 PUFFS INH Q12H for 30 Days, #10.2 GM 0 Refills Diltiazem HCl (Diltiazem 24Hr ER (LA)) 120 Mg Tab.er.24h 1 TAB PO DAILY Famotidine (Famotidine) 40 Mg Tablet 1 TAB PO DAILY, 0 Refills Discharge Summary: As per my admitting history and physical note" This is a 65-year-old female brought from a recovery program by EMS due to complaints of substernal chest pain and shortness of breath. Chest pain present over midline nonradiating. Denied use of any alcohol or any tobacco. Home Hospice Aide gave her nitro which helped for chest pain She was also noted to have a recent near syncopal episode. She was feeling very dizzy and tired. At the time of the arrival, she was rating her pain five or 6/10, and was given one nitro. She notes that the pain is now subsiding, but she does not endorse significant shortness of breath. History COPD, currently on prednisone. No recent fevers or chills. Hx meth use but clean over 5 yrs. Patient medication list reviewed and as per patient hydrochlorothiazide is the new medication but rest of the medications are chronic. Further workup done in ER sodium 127 signs of possible UTI present. Hospitalist services contacted for admission and further management" During hospitalization patient was treated for Patient is 65-year-old female with a diagnosis of Near Syncope, Hypertension, Hypotonic hyponatremia, Mild hypochromic anemia, History of substance abuse, Depression is admitted for chest pain rule out acute coronary syndrome, hyponatremia, possible UTI and near syncope in hospital . # hyponatremia- We will hold hydrochlorothiazide and patient is started on IV fluids. For hyponatremia started on IV fluids we will monitor patient's labs and vitals closely. # Patient is started on IV antibiotic therapy for possible UTI and we followed the urine culture results. # For chest pain rule out ACS- echocardiogram and Lexiscan ordered and results reviewed.NM VIVIANA SCANNORMAL MYOCARDIAL PERFUSION EXAM. ECHOCARDIOGRAM Overall systolic function appears normal. LVEF is 60%.RVSP is estimated at 42 mmHG. # [id number] vitals normal . physical therapy evaluation. Patient recently had head CT carotid artery ultrasound done on June 03, 2025 which was normal unremarkable. No focal neurological deficits Patient is feeling better she has been afebrile and getting discharged home in stable condition. Patient is seen and examined on the day of discharge. All labs, diagnostic workup and discharge plan discussed with patient in detail before her discharge. All questions and queries answered to the best of my professional medical knowledge. I heard patient's concerns and address appropriately. Patient was cleared by Physical therapy team for home discharge . edi manager pb involved in patient's discharge plan. Discharge instructions provided to the patient. Please follow-up with PCP, Neurology specialist in 1-2 weeks. Adjustment of blood pressure medication done during hospital stay. Maintain blood pressure and heart rate log book for 2-3 weeks and follow-up with the primary care physician/ provider education specialist for hypertension. Activity as tolerated. General-patient not in any acute distress, alert awake oriented, chronically ill-appearing HEENT-atraumatic normocephalic, neck supple without elevated JVD, no thyromegaly or carotid bruit. No lymphadenopathy bilaterally. Eyes-no icterus or pallor seen in eyes Chest-clear to auscultation bilaterally, breathing nonlabored no tachypnea, no wheezing, no crepitation, no crackles. Heart-S1-S2 normal, regular heart rate no murmur Abdomen bowel sounds positive on auscultation, soft nondistended nontender no guarding, no rigidity Skin no active skin rash Neurology-grossly intact, nonfocal alert awake oriented, no focal neurological deficit Extremity- no pedal edema able to move all 4 extremities Psychiatry - patient is not confused or agitated cooperated during physical examination *Problems/Diagnosis: (1) Hyponatremia Status: Acute (2) Near syncope Status: Acute (3) Urinary tract infection Status: Acute (4) Nonspecific chest pain Status: Acute Total Time Spent on D/C: > 30 Minutes Date of Service: Aug 23, 2025 Billing Provider: IRA DURBIN MD Common Visit Codes: 69079-XOZ/OBS DISCH DAY >30min IRA DURBIN MD Aug 23, 2025 17:45
== END 2025-08-23 12:10 | disposition home or self-care (01) | DRG 206 ==
LOC: ER 10:53 → ED HOLD 13:52 → ORTHO 4S 19:50
PROVIDERS: ADMIT Internal Medicine; ATTEND Internal Medicine
PROC: 4A02XM4 Measurement of Cardiac Total Activity, External Approach (ICD-10-PCS; principal; 2025-08-22)
PROC: 3E033HZ Introduction of Radioactive Substance into Peripheral Vein, Percutaneous Approach (ICD-10-PCS; 2025-08-22)
DX: M94.0 Chondrocostal junction syndrome [Tietze] (principal); E87.1 Hypo-osmolality and hyponatremia; D50.8 Other iron deficiency anemias; F15.90 Other stimulant use, unspecified, uncomplicated; E86.0 Dehydration; F32.A Depression, unspecified; N39.0 Urinary tract infection, site not specified; I10 Essential (primary) hypertension; J44.9 Chronic obstructive pulmonary disease, unspecified; Z20.822 Contact with and (suspected) exposure to COVID-19; R07.89 Other chest pain; Z88.6 Allergy status to analgesic agent; Z79.899 Other long term (current) drug therapy; Z90.710 Acquired absence of both cervix and uterus; T50.2X5A Adverse effect of carbonic-anhydrase inhibitors, benzothiadiazides and other diuretics, initial encounter; T46.5X5A Adverse effect of other antihypertensive drugs, initial encounter
CPT/HCPCS: 36415; 71045; 78452; 80048; 80053; 81001; 82948; 83735; 83880; 84484; 85025; 86704; 86705; 87077; 87081; 87088; 87186; 87340; 87804; 87811; 93005; 93017; 93308; 94640; 94760; 99285; A9500; G0378; J0696; J1644; J1938; J2785; J7030

== ENCOUNTER 2025-09-07 14:13 | Emergency (ER) | payer MEDICARE, MEDICAID ==
[~2025-09-07] VITALS: Ht 162.6 cm; Wt 99.8 kg
[~2025-09-07 14:13] MED LIST changes: -LOSA25TA41 PO; +LOSA50TA64 PO; +SODI1TAB2 PO
[2025-09-07 14:24] VITALS: BP_DIAS 100; RESP 20; O2SAT 98
--- NOTE | 2025-09-07 14:48 | Physician Documentation ---
History of Present Illness ~ Chief Complaint: Hypertension Stated Complaint: HIGH BP Time Seen by MD: 14:31 Mode of Arrival: POV HPI 65-year-old female with a known history of high blood pressure. Patient takes 75 mg of losartan a day. He has only been able to take 50 mg since due to being out of her 25 mg tablets. Her prescription of 25 mg tablets we will be available this Monday. Patient is quite upset because she does not have a physical capacity to obtain them prior to the authorization of her medical plan. Medication Reconciliation Allergies: Coded Allergies: aspirin (Verified Allergy, Unknown, 09/07/25) Scheduled Budesonide/Formoterol Fumarate (Symbicort 160-4.5 Mcg Inhaler), 2 PUFFS INH Q12H Diltiazem HCl (Diltiazem 24Hr ER (LA)), 1 TAB PO DAILY, (Reported) Famotidine (Famotidine), 1 TAB PO DAILY, (Reported) Losartan Potassium (Losartan Potassium), 0.5 TAB PO DAILY Sodium Chloride (SODIUM CHLORIDE tablet), 1 GM PO BID Scheduled PRN Albuterol Sulfate/Budesonide (Airsupra 90-80 Mcg Inhaler), 2 PUFFS PO Q4H PRN for SOB or wheezing, (Reported) Past Medical History Patient History: Diabetes mellitus in mother FH: seizures Brother Sister Hypertension in father Alcohol Use: Sober Drug Use: methamphetamine Lives with: Other Lives In: Assisted Care Review of Systems All Other Systems at this time: Reviewed and Negative Constitutional: Reports: see HPI Respiratory: Reports: no symptoms reported Cardiovascular: Reports: no symptoms reported Neurological: Reports: no symptoms reported Physical Exam Vital Signs: RN Vital Signs have been reviewed: Yes, Temperature: 97.6, Heart Rate: 75, Respiratory Rate: 20, BP: 179/100, Pulse Oximetry: 98, Weight: 99.800 Oxygen Flow Rate: 0 General Appearance: alert, WD/WN, other (Anxious) Neck: normal inspection Pupils/EOM/Fundus: PERRLA Respiratory: normal breath sounds Chest: no accessory muscle use Gastrointestinal: non-tender Extremities: normal inspection, no calf tenderness Skin: normal color Orientation / Memory / CN Exam: oriented x3 Motor / Sensory: no motor deficit Psychiatric: normal mood/affect Progress Results/Orders Results/Orders Completed Orders - FIORELLA CONTEH PAC Losartan Potass Tablet (Cozaar Tablet) (09/07/25 14:51) Vital Signs 09/07/25 09/07/25 14:24 14:43 Temp 97.6 Pulse 75 Resp 20 B/P (MAP) 179/100 Pulse Ox 98 O2 Flow Rate 0 Medical Decision Making Additional information obtaine: N/A Findings Patient received 25 mg losartan in the emergency department. She has been instructed to cut the 50 mg tablet in half take that with a 50 mg tablet totaling 75. She is very happy with this plan. She will return to the emergency department in the interim before picking up her prescriptions needed. Discharged in the emergency department without consideration for hypertensive urgency and/or emergency. Differential Dx:Considerations: Include HTN, essential, Include HTN, malignant Departure Disposition: HOME / SELF CARE / HOMELESS Impression: Primary Impression: Benign hypertension Condition: Improved Discharge Instructions: Hypertension, Adult Additional Instructions: Today in the emergency department you received 25 mg of losartan. Please cut your 50 mg tablet in half and take along with the other 50 for a total dose of 75 until receiving your prescription for 25 mg losartan on Monday. Have a wonderful Thanksgiving and return to the emergency department as needed. Referrals: NO PRIMARY CARE PROVIDER (PCP) Education Educated: Patient, Family Educated regarding: diagnosis, treatment, prognosis, need for follow up Signature Scribe Signature: . Attestation: . FIORELLA CONTEH PAC Sep 07, 2025 14:48
[2025-09-07 15:13] VITALS: PULSE 90
[2025-09-07 15:20] VITALS: BP_SYST 158; TEMP 97.6
== END 2025-09-07 15:21 | disposition home or self-care (01) ==
LOC: ER 14:13
DX: I10 Essential (primary) hypertension (principal); F15.90 Other stimulant use, unspecified, uncomplicated; E11.9 Type 2 diabetes mellitus without complications; Z88.6 Allergy status to analgesic agent; Z79.899 Other long term (current) drug therapy
CPT/HCPCS: 99283